=== PATIENT | female | born 1940 | race Caucasian/White ===

== ENCOUNTER → 2020-09-07 | Outpatient (CLI) | payer MEDICARE, OTHER | LOC: KOH-I 16:33 | DX: R07.81 Pleurodynia (principal); K44.9 Diaphragmatic hernia without obstruction or gangrene | CPT/HCPCS: 71101 ==

== ENCOUNTER → 2021-06-05 | Outpatient (CLI) | payer MEDICARE, OTHER | LOC: KOH-I 15:15 | DX: R05.3 Chronic cough (principal) | CPT/HCPCS: 71046 ==